=== PATIENT | female | born 1945 | race Caucasian/White ===

== ENCOUNTER 2020-07-03 16:53 | Outpatient (RCR) | payer MEDICARE, SELFPAY ==
[2019-02-15 11:14] VITALS: BMI 25.8
[2019-05-16 13:23] VITALS: BMI 26.0
[2020-07-03] MEDS: COVID-19 VACC, MRNA(PFIZER)/PF 30 MCG/0.3 ML SYRINGE IM (10:17)
[2020-07-24] MEDS: COVID-19 VACC, MRNA(PFIZER)/PF 30 MCG/0.3 ML SYRINGE IM (10:00)
== END 2020-07-03 23:59 ==
LOC: IMMUN 16:53
PROVIDERS: Referring Provider Family Medicine; Visit Provider Family Medicine
DX: Z23 Encounter for immunization (principal)
CPT/HCPCS: 0001A; 0002A

== ENCOUNTER → 2023-11-07 | Outpatient (CLI) | payer MEDICARE, SELFPAY ==
[2019-02-15 11:14] VITALS: BMI 25.8
== END | disposition home or self-care (01) ==
PROVIDERS: Referring Provider Otolaryngology; Visit Provider Otolaryngology
DX: B37.0 Candidal stomatitis (principal)
CPT/HCPCS: 87070; 87205